=== PATIENT | female | born 1985 | race Caucasian/White ===

== ENCOUNTER 2016-12-06 15:02 | Emergency (ER) | payer OTHER ==
[~2016-12-06] VITALS: Ht 157.5 cm; Wt 59.5 kg
[2016-12-06 15:04] VITALS: Ht 157.5 cm; Wt 59.5 kg
--- NOTE | 2016-12-06 15:31 | ERD ---
ER Documentation Chief Complaint Date/Time DATE: 12/06/16 TIME: 15:29 Chief Complaint pain to right 3rd toe injury a week ago HPI Is a 31-year-old female who presents the emergency department today complaining of pain in her right toe. States she slipped and fell at a [employer] last week and caught her foot under a chair while she was barefoot. States that it was "dislocated" and states that she "straightened it out". Denies any previous trauma, fevers or chills. ROS All systems reviewed and are negative except as per history of present illness. Medications Home Meds Active Scripts Naproxen* (Naprosyn*) 500 Mg Tablet, 500 MG PO BID Y for PAIN AND/OR INFLAMMATION, #30 TAB Prov:DEVONTE CORONADO PA-C 12/06/16 Allergies Allergies: Coded Allergies: No Known Allergy (Unverified , 12/06/16) PMhx/Soc Medical and Surgical Hx: pt denies Medical Hx, pt denies Surgical Hx Hx Alcohol Use: No Hx Substance Use: No Hx Tobacco Use: No Smoking Status: Never smoker Physical Exam Vitals Vital Signs Date Time Temp Pulse Resp B/P Pulse Ox O2 Delivery O2 Flow Rate FiO2 12/06/16 15:04 98.0 72 18 125/67 100 Physical Exam Const: [] Head: Atraumatic Eyes: Normal Conjunctiva ENT: Normal External Ears, Nose and Mouth. Neck: Full range of motion..~ No meningismus. Resp: Clear to auscultation bilaterally Cardio: Regular rate and rhythm, no murmurs Abd: Soft, non tender, non distended. Normal bowel sounds Skin: No petechiae or rashes Back: No midline or flank tenderness Ext: No cyanosis, or edema Neur: Awake and alert Psych: Normal Mood and Affect Results 24 hrs C IMAGING REPORT Patient: ANDREZ LEWIS : 1985 Age: 31 Sex: F MR #: [id number] DOS: 12/06/16 0000 Ordering MD: DEVONTE CORONADO PA-C Location: [facility] Room/Bed: PROCEDURE: XR Foot. CLINICAL INDICATION: Right foot pain. Trauma TECHNIQUE: AP, lateral and oblique views of the right foot was obtained. The images were reviewed on a PACS workstation. COMPARISON: None. FINDINGS: A nondisplaced oblique fracture of the third proximal phalanx is seen with soft tissue swelling. No other fracture is seen. No dislocation is seen. The joint spaces are preserved. Bone mineralization is normal. The soft tissue structures are intact. IMPRESSION: Nondisplaced oblique fracture of the third proximal phalanx. RPTAT: HPNM Physician Justin Date Time Electronically viewed and signed by Mervin Capellan Physician on 12/06/2016 15 :55 / CC: DEVONTE CORONADO PA-C/MDM Is a 31-year-old female who presents the emergency department today complaining of pain in her right toe after slipping and falling in a [employer] last week. On physical exam patient has edema in her right third toe and second toe. She has ecchymosis over her first second and third digits. Given this I did obtain images. Per the radiology report images of the right foot show a nondisplaced oblique fracture of the third proximal phalanx. No other fracture or dislocation is seen. Joint spaces are preserved. Soft tissues are intact. Likely the source of the patient's pain and swelling. She declined any pain medication here in the emergency department. She will be given a prescription for Naprosyn for home. I did offer patient an ortho shoe you however patient declined. She was instructed to brent tape it and keep it wrapped for compression and to help decrease swelling. Patient was asking if I would stick a needle in the toe and drain some of the fluid out. I have explained to her that this is not indicated or beneficial. Patient understood At this time the patient is stable for discharge and outpatient management. Patient should follow up with their PCP in the next 1-2 days. They may return to the emergency department sooner for any persistent or worsening of symptoms. Patient understood and agreed with the plan. Departure Diagnosis: Primary Impression: Toe fracture, right Encounter type: initial encounter Toe: lesser toe Fracture type: closed Phalanx: proximal Fracture alignment: nondisplaced Qualified Code: S92.514A - Closed nondisplaced fracture of proximal phalanx of lesser toe of right foot, initial encounter Condition: DEVONTE Goss PA-C Dec 06, 2016 15:31
--- NOTE | 2016-12-06 15:56 | RADRPT ---
PROCEDURE: XR Foot. CLINICAL INDICATION: Right foot pain. Trauma TECHNIQUE: AP, lateral and oblique views of the right foot was obtained. The images were reviewed on a PACS workstation. COMPARISON: None. FINDINGS: A nondisplaced oblique fracture of the third proximal phalanx is seen with soft tissue swelling. No other fracture is seen. No dislocation is seen. The joint spaces are preserved. Bone mineralizatio n is normal. The soft tissue structures are intact. IMPRESSION: Nondisplaced oblique fracture of the third proximal phalanx. RPTAT: HPNM Physician Justin Date Time Electronically viewed and signed by Physician Justin on 12/06/2016 15:55 /
[2016-12-06] MEDS ORDERED: NAPR-260 PO (16:16)
== END 2016-12-06 16:43 | disposition home or self-care (01) ==
LOC: FTE 15:02
DX: S92.514A Nondisplaced fracture of proximal phalanx of right lesser toe(s), initial encounter for closed fracture (principal); W01.0XXA Fall on same level from slipping, tripping and stumbling without subsequent striking against object, initial encounter; Y92.9 Unspecified place or not applicable
CPT/HCPCS: 73630; Z7502